=== PATIENT | female | born 1945 ===

== ENCOUNTER → 2017-02-09 | Outpatient (CLI) | payer MEDICARE ==
--- NOTE | 2017-02-09 22:05 | US ---
EXAMINATION TYPE: US thyroid st tissue head/neck DATE OF EXAM: 02/09/2017 COMPARISON: NONE CLINICAL HISTORY: 71-year-old female F45.8 Other somatoform disorders. Patient feels like there is jeri mp in throat. TECHNIQUE: Multiple sonographic images of the thyroid gland are obtained. FINDINGS: GLAND SIZE: Right Lobe: 3.2 x 2.2 x 1.6 cm Overall Parenchyma: heterogenous Left Lobe: 3.6 x 1.1 x 1.6 cm Overall Parenchyma: heterogeneous Isthmus Thickness: 0.2 cm NODULES RIGHT: # of nodules measured on right: 2 1. 1.4 X 0.7 x 0.9 cm heterogeneous solid nodule at the upper pole. This nodule is wider than tall and shows intranodular vascularity. Prior size: no prior 2. 0.6 X 0.5 x 0.7 cm isoechoic solid nodule at the upper pole with well-defined margins; . This no dule is wider than tall and shows intranodular vascularity. Prior size: no prior LEFT: # of nodules measured on left: 0 ISTHMUS: # of nodules measured in the isthmus: 0 Bilateral neck scanned, no evidence of lymphadenopathy. SPA DIRECTOR NOTES: Gland is difficult to image as it blends in with surrounding tissue. Nodules on th e right are side by side, they appear very different so were measured as two separate nodules. IMPRESSION: 2 solid nodules in the right lobe measuring 1.4 cm and 0.7 cm. Consideration can be given to FNA for the larger nodule.
== END | disposition home or self-care (01) ==
LOC: RADUSWWP 16:52
PROVIDERS: ATTEND Family Medicine
DX: E04.2 Nontoxic multinodular goiter (principal); F45.8 Other somatoform disorders
CPT/HCPCS: 76536